=== PATIENT | female | born 1940 | race Caucasian/White ===

== ENCOUNTER 2018-01-28 10:41 | Outpatient (REF) | payer MEDICARE, SELFPAY ==
[2018-01-28 22:07] LABS: TSH (W/Ref FT4) 1.58 uIU/mL (0.358-3.74); Vitamin B12 839 pg/mL (193-986)
== END 2018-01-28 11:01 ==
LOC: NCHCN 10:41
PROVIDERS: PCP Nurse Practitioner Family; Visit Provider Family Medicine
DX: D75.89 Other specified diseases of blood and blood-forming organs (principal); E03.9 Hypothyroidism, unspecified
CPT/HCPCS: 82607; 84443

== ENCOUNTER 2018-03-29 11:28 | Outpatient (REF) | payer MEDICARE, SELFPAY ==
[2018-03-29 21:42] LABS: TSH (W/Ref FT4) 1.29 uIU/mL (0.358-3.74)
== END 2018-03-29 11:48 ==
LOC: NCHCN 11:28
PROVIDERS: PCP Nurse Practitioner Family; Visit Provider Family Medicine
DX: E03.9 Hypothyroidism, unspecified (principal)
CPT/HCPCS: 84443

== ENCOUNTER 2018-10-01 14:00 | Outpatient (REF) | payer MEDICARE, SELFPAY ==
[2018-10-01 21:19] LABS: TSH (W/Ref FT4) 2.42 uIU/mL (0.358-3.74)
== END 2018-10-01 14:20 ==
LOC: NCHCN 14:00
PROVIDERS: PCP Nurse Practitioner Family; Visit Provider Family Medicine
DX: E03.9 Hypothyroidism, unspecified (principal)
CPT/HCPCS: 84443

== ENCOUNTER 2018-10-20 08:48 | Outpatient (REF) | payer MEDICARE, SELFPAY ==
[2018-10-20 22:16] LABS: Absolute Basophil Count 0.04 k/cumm (0.0-0.2); Absolute Eosinophil Count 0.19 k/cumm (0.0-0.7); Absolute Lymphocyte Count 0.99 k/cumm (1.2-3.4); Absolute Monocyte Count 0.38 k/cumm (0.11-0.7); Absolute Neutrophil Count 3.43 k/cumm (1.2-6.7); Basophils % 0.8; Eosinophils % 3.8; HCT 39.1 % (36.0-46.0); HGB 12.7 g/dL (12.0-15.5); Lymphocytes % 19.7; Mean Corp. HGB Concentration 32.5 g/dL (32.0-36.0); Mean Corpuscular Hemoglobin 31.7 pg (27.0-33.0); Mean Corpuscular Volume 97.5 fL (80-95); Mean Platelet Volume 9.8 fL (8.0-11.0); Monocytes % 7.6; Neutrophils % 68.1; Platelet Count 316 x1000/uL (130-400); RBC 4.01 m/cumm (4.00-5.20); RBC Distribution Width 14.5 % (11.7-14.6); White Blood Cell Count 5.03 k/cumm (4.4-10.8)
[2018-10-20 22:31] LABS: ALT 26 U/L (12-78); AST 24 U/L (15-37); Albumin 3.8 g/dL (3.4-5.0); Alkaline Phosphatase 80 U/L (46-116); Anion Gap 8.1 mmol/L (3-11); BUN 17 mg/dL (7-18); Bilirubin, Total 0.5 mg/dL (0.2-1.0); C-Reactive Protein 1.47 mg/dL (0.0-0.3); CO2 27.9 mmol/L (21.0-32.0); Calcium 9.4 mg/dL (8.5-10.1); Chloride 103 mmol/L (98-107); Glucose 97 mg/dL (70-100); Potassium 4.1 mmol/L (3.5-5.1); Sodium 139 mmol/L (136-145); Total Protein 7.5 g/dL (6.4-8.2)
[2018-10-20 23:02] LABS: Calculated LDL 144; Cholesterol 229 mg/dL (50-200); HDL Cholesterol 66 mg/dL (40-60); Triglyceride 95 mg/dL (30-150)
[2018-10-20 23:27] LABS: ESR 23 MM/HR (0-30)
== END 2018-10-20 09:08 ==
LOC: NCHCN 08:48
PROVIDERS: PCP Nurse Practitioner Family; Visit Provider Family Medicine
DX: E78.5 Hyperlipidemia, unspecified (principal); L29.9 Pruritus, unspecified; M79.18 Myalgia, other site
CPT/HCPCS: 80053; 80061; 83721; 85652; 85025; 86140

== ENCOUNTER 2019-04-04 08:44 | Outpatient (REF) | payer MEDICARE, SELFPAY ==
[2019-04-04 21:21] LABS: TSH (W/Ref FT4) 1.16 uIU/mL (0.36-3.74)
== END 2019-04-04 09:04 ==
LOC: NCHCN 08:44
PROVIDERS: PCP Family Medicine; Visit Provider Family Medicine
DX: E03.9 Hypothyroidism, unspecified (principal)
CPT/HCPCS: 84443

== ENCOUNTER 2020-04-23 09:25 | Outpatient (REF) | payer MEDICARE, SELFPAY ==
[2020-04-23 21:55] LABS: Calculated LDL 96 mg/dL (<100); Cholesterol 202 mg/dL (<200); HDL Cholesterol 89 mg/dL (40-60); TSH 2.64 uIU/mL (0.36-3.74); Triglyceride 85 mg/dL (<150)
== END 2020-04-23 09:45 ==
LOC: NCHCN 09:25
PROVIDERS: PCP Family Medicine; Visit Provider Family Medicine
DX: E03.9 Hypothyroidism, unspecified (principal); E78.5 Hyperlipidemia, unspecified
CPT/HCPCS: 80061; 84443

== ENCOUNTER 2021-05-16 18:56 | Outpatient (REF) | payer MEDICARE, SELFPAY ==
[2021-05-16 19:48] LABS: Calculated LDL 102 mg/dL (<100); Cholesterol 205 mg/dL (<200); HDL Cholesterol 84 mg/dL (40-60); TSH 1.16 uIU/mL (0.36-3.74); Triglyceride 98 mg/dL (<150)
== END 2021-05-16 18:57 | disposition home or self-care (01) ==
LOC: NCHCN 18:56
PROVIDERS: PCP Family Medicine; Visit Provider Family Medicine
DX: E03.9 Hypothyroidism, unspecified (principal); E78.5 Hyperlipidemia, unspecified
CPT/HCPCS: 80061; 84443

== ENCOUNTER 2021-07-12 18:30 | Outpatient (REF) | payer MEDICARE, SELFPAY ==
[2021-07-12 14:25] LABS: HCT 38.7 % (36.0-46.0); HGB 12.6 g/dL (11.2-15.7); MCH 31.4 pg (27.0-33.0); MCHC 32.6 % (32.0-36.0); MCV 96.5 fL (80-95); MPV 9.5 fL (8.0-11.0); Platelet Count 227 10^3/uL (130-400); RBC 4.01 10^6/uL (3.93-5.22); RDW 14.2 % (11.7-14.6); RDW-SD 50.8 fL; WBC 6.05 10^3/uL (4.4-10.8)
== END 2021-07-12 18:31 | disposition home or self-care (01) ==
LOC: NCHCN 18:30
PROVIDERS: PCP Family Medicine; Visit Provider Family Medicine
DX: K62.5 Hemorrhage of anus and rectum (principal)
CPT/HCPCS: 85027

== ENCOUNTER 2021-09-18 17:23 | Outpatient (REF) | payer MEDICARE, SELFPAY ==
[2021-09-18 22:18] LABS: HCT 37.8 % (36.0-46.0); HGB 12.4 g/dL (11.2-15.7); MCH 31.4 pg (27.0-33.0); MCHC 32.8 % (32.0-36.0); MCV 96 fL (80-95); MPV 9.8 fL (8.0-11.0); Platelet Count 234 10^3/uL (130-400); RBC 3.95 10^6/uL (3.93-5.22); RDW 14.3 % (11.7-14.6); RDW-SD 50.4 fL; WBC 6.29 10^3/uL (4.4-10.8)
== END 2021-09-18 17:24 | disposition home or self-care (01) ==
LOC: NCHCN 17:23
PROVIDERS: PCP Family Medicine; Visit Provider Family Medicine
DX: K62.5 Hemorrhage of anus and rectum (principal); Z85.89 Personal history of malignant neoplasm of other organs and systems
CPT/HCPCS: 85027

== ENCOUNTER 2022-06-27 13:56 | Outpatient (REF) | payer MEDICARE, SELFPAY ==
[2022-06-27 15:44] LABS: Anion Gap 8.4 mmol/L (3-11); BUN 16 mg/dL (7-18); CO2 27.6 mmol/L (21.0-32.0); CREATININE 0.8 mg/dL (0.55-1.02); Calcium 9.4 mg/dL (8.5-10.1); Calculated LDL 94 mg/dL (<100); Chloride 104 mmol/L (98-107); Cholesterol 198 mg/dL (<200); Estimated GFR 73.06 (mL/min/1.73m2); Glucose 100 mg/dL (74-106); HDL Cholesterol 87 mg/dL (40-60); Potassium 3.8 mmol/L (3.5-5.1); Sodium 140 mmol/L (136-145); TSH 1.08 uIU/mL (0.36-3.74); Triglyceride 85 mg/dL (<150)
== END 2022-06-27 13:57 | disposition home or self-care (01) ==
LOC: NCHCN 13:56
PROVIDERS: PCP Family Medicine; Visit Provider Family Medicine
DX: E78.5 Hyperlipidemia, unspecified (principal); E03.9 Hypothyroidism, unspecified
CPT/HCPCS: 80048; 80061; 84443

== ENCOUNTER 2022-09-16 13:13 | Outpatient (REF) | payer MEDICARE, SELFPAY ==
--- NOTE | 2022-09-16 12:15 | ENDOMET_PTH ---
PATIENT: Milagros Mora V LOC: [facility] U#:[id number] AGE/SX: 82/F ROOM: RE09/16/[address]: Marisol Avila : 1940 BED: DIS: 09/16/2022 SPEC #: [id number] RECD: 09/17/22 11:40 STATUS: TITO REJaden #: [id number] DENY: 09/16/22 12:[address]: Marisol Avila DEPT: Surgical Specimen RECD BY: Loyda Martinez Tissues: 1 - ENDOMETRIUM BX/JOHNNA Procedures: GROSS AND MICRO LEVEL 4 Comments: [id number]
== END 2022-09-16 13:14 | disposition home or self-care (01) ==
LOC: NCHCN 13:13
PROVIDERS: PCP Family Medicine; Visit Provider Family Medicine
DX: N95.0 Postmenopausal bleeding (principal); N85.8 Other specified noninflammatory disorders of uterus; N85.00 Endometrial hyperplasia, unspecified
CPT/HCPCS: 88305

== ENCOUNTER 2023-11-10 16:23 | Outpatient (REF) | payer MEDICARE, SELFPAY ==
[2023-11-10 21:16] LABS: TSH 8.51 uIU/Ml (0.36-3.74)
--- NOTE | 2023-11-12 14:00 | SKI_PTH ---
PATIENT: Milagros Mora V LOC: [facility] U#:[id number] AGE/SX: 83/F ROOM: RE11/10/[address]: Marisol Avila : 1940 BED: DIS: 11/10/2023 SPEC #: [id number] RECD: 11/13/23 12:31 STATUS: TITO PARK #: [id number] DENY: 11/12/23 14:[address]: Marisol Avila DEPT: Surgical Specimen RECD BY: Loyda Martinez Tissues: 1 - SKIN BIOPSY(SHAVE/PUNCH) Procedures: SKIN LEVEL 4 SPECIAL STAIN 1 Comments: [id number]
== END 2023-11-10 16:24 | disposition home or self-care (01) ==
LOC: NCHCN 16:23
PROVIDERS: PCP Family Medicine; Visit Provider Family Medicine
DX: E03.9 Hypothyroidism, unspecified (principal)
CPT/HCPCS: 84439; 84443; 88305; 88312